=== PATIENT | male | born 1940 | race Caucasian/White ===

== ENCOUNTER → 2017-03-05 | Day surgery (SDC) | payer MEDICARE ==
[2017-02-13 13:51] LABS: BASOPHILS # (AUTO) 0.1 (0.0-0.1); BASOPHILS % 0.9 % (0.0-1.0); EOSINOPHILS # (AUTO) 0.2 (0.0-0.4); EOSINOPHILS % 2.6 % (0.0-6.0); HEMATOCRIT 44.8 % (38.2-49.6); HEMOGLOBIN 15.2 g/dL (14.0-18.0); LYMPHOCYTES # (AUTO) 1.5 (1.0-3.2); LYMPHOCYTES % 21.3 % (18.0-39.1); MEAN CORPUSCULAR HEMOGLOBIN 31.3 pg (28-32); MEAN CORPUSCULAR HGB CONC 33.9 g/dL (31-35); MEAN CORPUSCULAR VOLUME 92.2 fL (81-99); MONOCYTES # (AUTO) 0.7 (0.2-0.8); MONOCYTES % 10.3 % (4.4-11.3); NEUTROPHILS # (AUTO) 4.4 (2.1-6.9); NEUTROPHILS % 64.8 % (38.7-80.0); PLATELET COUNT 175 x10e3/uL (140-360); RED BLOOD COUNT 4.86 x10e6/uL (4.3-5.7)
[~2017-03-05] MED LIST: BACTRIM DS TAB1 EACH PO; CIPRO250 MG PO; FENTANYL CITRATE/PF 100MCG/2 ML INJ ONE; FLAGYL500 MG PO; MIDAZOLAM HCL 2 MG/2 ML VIAL ONE; NORCO 5-325 TA1 EACH PO; PHENYLEPHRINE HCL 1% 10 MG/ML VIAL ONE; PROPOFOL IV EMULSION 10 MG/ML 50 ML VIAL ONE; TEMAZEPAM15 MG PO; TIZANIDINE HCL4 M1 PO; VALIUM5 MG PO; Z.0.TAMSULOSIN HCL0. PO; [UNRECOGNIZED DRUG - REMARK] PO
== END | disposition home or self-care (01) ==
LOC: OR 08:52
PROVIDERS: ATTEND Internal Medicine Gastroenterology
DX: Z12.11 Encounter for screening for malignant neoplasm of colon (principal); D12.0 Benign neoplasm of cecum; D12.2 Benign neoplasm of ascending colon; D12.3 Benign neoplasm of transverse colon; D12.4 Benign neoplasm of descending colon; D12.8 Benign neoplasm of rectum; K29.50 Unspecified chronic gastritis without bleeding; K31.89 Other diseases of stomach and duodenum; K44.9 Diaphragmatic hernia without obstruction or gangrene; R13.10 Dysphagia, unspecified; K57.30 Diverticulosis of large intestine without perforation or abscess without bleeding; K64.8 Other hemorrhoids; M54.9 Dorsalgia, unspecified; I45.10 Unspecified right bundle-branch block; N40.0 Benign prostatic hyperplasia without lower urinary tract symptoms; E03.9 Hypothyroidism, unspecified; G47.30 Sleep apnea, unspecified; F17.299 Nicotine dependence, other tobacco product, with unspecified nicotine-induced disorders; Z01.812 Encounter for preprocedural laboratory examination
CPT/HCPCS: 36415; 43239; 45384; 45385; 85025; 87106; 87205; 88112; 88305; 88312; 93005; J2250; J2370; 43235

== ENCOUNTER 2019-04-04 08:35 | Observation (INO) | payer MEDICARE ==
[~2019-04-04] VITALS: Ht 172.7 cm; Wt 76.2 kg
[~2019-04-04 08:35] MED LIST changes: -FENTANYL CITRATE/PF 100MCG/2 ML INJ ONE; -MIDAZOLAM HCL 2 MG/2 ML VIAL ONE; -PHENYLEPHRINE HCL 1% 10 MG/ML VIAL ONE; -PROPOFOL IV EMULSION 10 MG/ML 50 ML VIAL ONE
--- OUTSIDE RECORDS SUMMARY | 2019-04-04 08:39 | XMS REPORT ---
Author Author [facility] Address Unknown Phone Unavailable Care Team Providers Care Civil Drafter Name Role Phone Unavailable Unavailable Payers Payer Name Policy Type Policy Number Effective Date Expiration Date Problems This patient has no known problems. Allergies, Adverse Reactions, Alerts Allergy Name Allergy Type Status Severity Reaction(s) Onset Date Inactive Date Treating Clinician Comments aspirin DA Active MO 2014-12-31 00:00:00 penicillin G DA Active MO 2014-12-31 00:00:00 Medications This patient has no known medications. Results Test Description Test Time Test Comments Text Results Atomic Results Result Comments PROSTATE, TUR 2017-12-24 12:08:00 RUN DATE: 12/24/17 [facility] PAGE 1 RUN TIME: 1208 Specimen Inquiry RUN USER: INTERFACE PATIENT: ROLAND THOMAS LOC: SHAY #: [id number] AGE/SX: 76/M ROOM: [facility] RE12/23/17REG DR: Alex Madera MD : 38 BED: A DIS: 12/24/17 STATUS: DIS Penny TLOC: SPEC #: [id number] RECD: 12/23/17 STATUS: MARIA DEL ROSARIO REQ #: [id number] MINISTERIO: 12/23/[address] [facility] [address]: Alex Madera MD ENTERED: 12/23/17 SP TYPE: PROSTATE, OTHR DR: Alexi Dolan MD ORDERED: GROSS COPIES TO: Alexi Dolan MD [address], [address] [place] [address] Alex Madera MD [address] [place] [address] MARKERS: INTRADEPARTMENTAL CONSULT PROCEDURES: GROSS (12/24/17-103) TISSUES: PROSTATE, NOS - CHIPS CLINICAL HISTORY COLLECTION DATE: 12/23/2017 BENIGN PROSTATIC HYPERPLASIA COMMENT Intradepartmental consultation: JAMEY FINAL DIAGNOSIS Prostate, transurethral resection: NODULAR HYPERPLASIA AND GRANT OF 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 It consists of multiple smith-brown to pink irregular fragments of tissue measuring 8.0 X 7.0 X 2.0 cm in aggregate. The tissue weighs 25.1 grams in total. The tissue is entirely submitted in cassette (1A-1R). GROSS PERFORMED AT [facility] [address] [place] [address] (p)[phone] MICROSCOPIC MICROSCOPIC PERFORMED AT [facility] All of the stains, including any controls performed, stain appropriately. [facility] [address] [place] [address] (p)[phone] PERFORM[address] SITE Diagnosis performed at: [facility] [address] [place] [address] Signed SIGNATURE ON FILE Jeromy Villanueva 12/24/17 1208 END OF REPORT
--- OUTSIDE RECORDS SUMMARY | 2019-04-04 08:39 | XMS REPORT | Summary of Care ---
Author Author MARCELA PARKER M.D. Unknown Address [facility] Phone Unavailable Care Team Providers Care Repatcher Name Role Phone CHRIS MCCAIN MD Unavailable Unavailable Unavailable Unavailable Functional Status Name Dates Details Functional status health issues are not documented Status: Name Dates Details Cognitive status health issues are not documented Status: Problems Name Dates Details Dysphagia (787.20, R13.10) Status: Active Esophageal diverticulum (750.4, Q39.6) Status: Active Sore throat (462, J02.9) Status: Active Medications Name Dates Details [place] Thyroid TABS R.N. Active Allergies and Adverse Reactions Name Dates Details Aspirin TABS (Allergy) Status: Active Penicillins (Allergy) Status: Active Past Medical History Name Dates Details History of thyroid disease (V12.29, Z86.39) Status: Resolved Procedures Procedure Dates Details History of Hernia Repair Completed History of Prostate Surgery Completed History of Rotator Cuff Repair Completed Immunization Name Dates Details Immunizations not documented Family History Name Dates Details No significant family history (V49.89, Z78.9) Comments: Family History Status: Active Social History Name Dates Details - Status: Name Dates Details Never smoker Vital Signs Date Test Result Details 20-Guj-[id number]:28 BP Systolic 156 mm[Hg] Status: BP Diastolic 91 mm[Hg] Status: Height 67 in Status: Weight 153.5 lb Status: Body Mass Index Calculated 24.04 kg/m2 Status: Body Surface Area Calculated 1.81 m2 Status: Heart Rate 61 /min Status: 81-Mji-989450:27 BP Systolic 143 mm[Hg] Status: BP Diastolic 86 mm[Hg] Status: Height 67 in Status: Weight 156.1875 lb Status: Body Mass Index Calculated 24.46 kg/m2 Status: Body Surface Area Calculated 1.82 m2 Status: Heart Rate 56 /min Status: Results Date Description Value Details :30 GI Esophagus barium swallow 28000 Esophagus barium swallow SEE NOTES Comments: Exam: Barium swallow esophagramReason for Exam: - R13.10 Dysphagia, unspecifiedComparison Exam: Thyroid ultrasound 08/07/2017Discussion:Recruitment Advertising Manager view of the cervical spine and soft tissu es of the neck are unremarkable.Patient ingested air crystals and barium without incident. Upon deglutition,there was no evidence seen for aspiration or penetration. The valleculae andpiriform sinuses are unremarkable.However, there is a moderate sized posterior esophageal diverticulum abuttingthe anterior aspect of the C6 vertebral body. The esophagus is unremarkable inappearance, without evidence for mucosal abnormalities, abnormal fillingdefects, or external mass effect. No evidence seen for tertiary contractionwaves or hiatal hernia. During the examination, there was no evidence seen forgastroesophageal refl ux.The stomach and visualized portions of the duodenum are unremarkable.Fluoro time 1 minute, 45 seconds.Total exam ZFR=5629 mGy-cm.Impression:1. Moderate sized posterior esophageal diverticulum abutting the anterioraspect of the C6 vertebral body.--Read by: Madhu Mcdonald MDDictated Date/time: 01/23/18 09:34Electronically Signed by: Madhu Mcdonald MD 01/23/1809:42FINAL REPORT Plan of Care Name Dates Details Planned Observations Planned Goals not documented Instructions Name Dates Details Instructions not documented Encounters Appointment; MARCELA PARKER M.D. Encounter Diagnosis: Problem not documented On: 10-Jan-2018 14:45 Appointment; MARCELA PARKER M.D. Encounter Diagnosis: Problem not documented On: 27-Jan-2018 13:15
[2019-04-04] MEDS ORDERED: SODIUM CHLORIDE 0.9% 1000ML 1,000 ML IV STA (08:51)
[2019-04-04] MEDS ORDERED: ASPIRIN 81 MG CHEW TAB PO ONE (09:00)
[2019-04-04] MEDS ORDERED: NITROGLYCERIN 2% OINT 1 GM PKT TOP ONE (09:00)
[2019-04-04] MEDS ORDERED: ONDANSETRON HCL INJ 2MG/ML 2ML 2 MG/ML VIAL IV NR (09:15)
[2019-04-04] MEDS ORDERED: MORPHINE SULFATE 2 MG/ML SYR 1ML IV NR (09:15)
[2019-04-04] MEDS ORDERED: PANTOPRAZOLE 40 MG 10ML VIAL IV NR (09:15)
[2019-04-04 09:29] LABS: BASOPHILS # (AUTO) 0.1 (0.0-0.1); BASOPHILS % 0.7 % (0.0-1.0); EOSINOPHILS # (AUTO) 0.2 (0.0-0.4); EOSINOPHILS % 1.8 % (0.0-6.0); HEMATOCRIT 47.2 % (38.2-49.6); HEMOGLOBIN 15.4 g/dL (14.0-18.0); LYMPHOCYTES # (AUTO) 1.5 (1.0-3.2); LYMPHOCYTES % 17.6 % (18.0-39.1); MEAN CORPUSCULAR HEMOGLOBIN 31.5 pg (28-32); MEAN CORPUSCULAR HGB CONC 32.6 g/dL (31-35); MEAN CORPUSCULAR VOLUME 96.5 fL (81-99); MONOCYTES # (AUTO) 0.8 (0.2-0.8); MONOCYTES % 9.6 % (4.4-11.3); NEUTROPHILS # (AUTO) 6.1 (2.1-6.9); NEUTROPHILS % 70.1 % (38.7-80.0); PLATELET COUNT 203 x10e3/uL (140-360); RED BLOOD COUNT 4.89 x10e6/uL (4.3-5.7)
[2019-04-04 09:37] LABS: INR 0.92; PROTHROMBIN TIME 12.9 seconds (11.9-14.5)
[2019-04-04 09:38] LABS: PARTIAL THROMBOPLASTIN TIME 31.5 seconds (23.8-35.5)
[2019-04-04 09:47] LABS: ALBUMIN 4.1 g/dL (3.5-5.0); ALBUMIN/GLOBULIN RATIO 1.2 (0.8-2.0); ANION GAP 12.6 mmol/L (8-16); CALCIUM 9.8 mg/dL (8.4-10.2); CREATININE, SERUM 1.72 mg/dL (0.72-1.25); POTASSIUM 3.6 mmol/L (3.5-5.1)
[2019-04-04 09:53] LABS: CREATINE KINASE MB 1.5 ng/mL (0-5.0)
[2019-04-04] MEDS ORDERED: HYDRALAZINE HCL 20 MG/ML VIAL IV STA (09:58)
[2019-04-04] MEDS ORDERED: MORPHINE SULFATE INJ 4 MG/ML INJ 1ML IV NR (10:00)
--- NOTE | 2019-04-04 10:12 | Diagnostic Imaging Report ---
EXAMINATION: CHEST SINGLE (PORTABLE) INDICATION: ^CP ^[id number] ^0909 COMPARISON: None FINDINGS: AP view TUBES and LINES: None. LUNGS: Lungs are well inflated. Linear atelectasis in lung bases. PLEURA: No pleural effusion or pneumothorax. HEART AND MEDIASTINUM: The cardiomediastinal silhouette is unremarkable. BONES AND SOFT TISSUES: No acute osseous lesion. Soft tissues are unremarkable. UPPER ABDOMEN: No free air under the diaphragm. IMPRESSION: Linear atelectasis in lung bases. Signed by: Maxime Torres MD on 04/04/2019 10:10 AM
[2019-04-04] MEDS ORDERED: MORPHINE SULFATE 2 MG/ML SYR 1ML IV PRN (12:15)
[2019-04-04] MEDS ORDERED: ONDANSETRON HCL INJ 2MG/ML 2ML 2 MG/ML VIAL IV PRN (12:15)
[2019-04-04] MEDS ORDERED: HYDRALAZINE HCL 20 MG/ML VIAL IV PRN (12:15)
--- NOTE | 2019-04-04 12:28 | Diagnostic Imaging Report ---
EXAM: CT Abdomen and Pelvis WITHOUT contrast INDICATION: ^MAIE ABD PAIN, GFR 38 ^[id number] ^1110 ^Y COMPARISON: None. TECHNIQUE: Abdomen and pelvis were scanned utilizing a multidetector helical scanner from the lung base to the pubic symphysis without administration of IV contrast. Absence of intravenous contrast decreases sensitivity for detection of focal lesions and vascular pathology. Coronal and sagittal reformations were obtained. Routine protocol was performed. IV CONTRAST: None ORAL CONTRAST: Water COMPLICATIONS: None RADIATION DOSE: Total DLP: 341.47 mGy-cm Estimated effective dose: (DLP x 0.015 x size factor) mSv CTDIvol has been reviewed. It is below the limits set by the Radiation Protocol Committee (RPC). FINDINGS: LINES and TUBES: None. LOWER THORAX: Unremarkable HEPATOBILIARY: There is a calcified granuloma in the right hepatic lobe. No biliary ductal dilation. GALLBLADDER: No radio-opaque stones or sludge. No wall thickening. SPLEEN: No splenomegaly. Multiple calcified granulomas are seen. PANCREAS: No focal masses or ductal dilatation. ADRENALS: No adrenal nodules KIDNEYS/URETERS: No hydronephrosis. There is 1.0 cm cyst in the interpolar region of the right kidney. There is a left parapelvic cyst. No stones. GI TRACT: No abnormal distention, wall thickening, or evidence of bowel obstruction. There are diverticula within the colon without evidence of diverticulitis. Appendix is normal. PELVIC ORGANS/BLADDER: Unremarkable. LYMPH NODES: No lymphadenopathy. VESSELS: There is severe atherosclerotic disease in the aorta and major arterial branches. PERITONEUM / RETROPERITONEUM: No free air or fluid. BONES: There are degenerative changes in the lumbar spine. SOFT TISSUES: Unremarkable. IMPRESSION: No CT finding to correlate with patient's abdominal pain. Colonic diverticulosis with no evidence of diverticulitis. Signed by: Maxime Torres MD on 04/04/2019 12:26 PM
--- NOTE | 2019-04-04 12:33 | Diagnostic Imaging Report ---
EXAM: Complete Abdominal Ultrasound INDICATION: ^AMIE ABD PAIN COMPARISON: None. TECHNIQUE: Transverse and longitudinal images of the upper abdomen were obtained. FINDINGS: Liver: Size: 14.1 cm in the right midclavicular line, normal Appearance: Normal echogenicity, smooth contour Mass: No focal masses Spleen: Size: 9.9 cm in length, normal Echogenicity: Normal Mass: No focal masses Gallbladder: Stones/Sludge: There is gallbladder sludge. Wall: 0.2 cm Appearance: No pericholecystic fluid or hydrops. Sonographic Young's Sign: Negative Bile Ducts: Intrahepatic Ducts: No dilatation Extrahepatic Ducts: Common bile duct measures 0.4 cm, no dilatation Pancreas: Visualized portions of the pancreatic head, neck and proximal body are normal. Right Kidney: Size: 10.8 cm Echogenicity: Normal Parenchymal thickness: Normal Collecting System: No hydronephrosis Stone: None Cyst/Mass: 0.8 cm simple cyst. Left Kidney: Size: 9.6 cm Echogenicity: Normal Parenchymal thickness: Normal Collecting System: No hydronephrosis Stone: None Cyst/Mass: 3.9 cm simple cyst. Vessels: Aorta: Visualized portions are normal Inferior Vena Cava: Visualized portions are normal Main Portal Vein: normal size with hepatopetal flow. Free Fluid: No ascites or pleural effusion IMPRESSION: Gallbladder sludge with no acute finding. Signed by: Maxime Torres MD on 04/04/2019 12:31 PM
--- NOTE | 2019-04-04 13:03 | NUR ---
RCD PT FROM ER BY BED PT IS ALERT AND ORIENTED PT RESTING ON BED VITALS CHECKED ADMISSION ASSESSMENT AND HISTORY DONE IV PATENT BY SALINE FLUSH INSTRUCTED PT REGARDING HOSPITAL POLICY AND ROUTINE BED LOW AND LOCKED CALL LIGHT IN REACH
[2019-04-04 13:38] VITALS: BP 122/91
[2019-04-04 14:22] VITALS: BP 122/91
[2019-04-04 14:33] VITALS: BP 122/91
[2019-04-04] MEDS: PANTOPRAZOLE 40 MG 10ML VIAL IV SCH (16:41)
[2019-04-04] MEDS: NITROGLYCERIN 2% OINT 1 GM PKT TOP SCH (16:41)
[2019-04-04 17:23] VITALS: BP 145/73
--- NOTE | 2019-04-04 18:41 | NUR ---
PT RESTING ON BED BED SIDE REPORT GIVEN TO ONCOMING NURSE
[2019-04-04 18:46] LABS: CREATINE KINASE MB 1.3 ng/mL (0-5.0)
[2019-04-04 20:00] VITALS: BP 137/75
[2019-04-04 21:00] VITALS: BP 137/75
[2019-04-04] MEDS ORDERED: TEMAZEPAM 15 MG CAP PO SCH (21:00)
[2019-04-05] VITALS: BP 114/65
[2019-04-05] MEDS: NITROGLYCERIN 2% OINT 1 GM PKT TOP SCH ×3 (00:02→12:00)
[2019-04-05] MEDS ORDERED: LEVOTHYROXINE50 MCG PO (03:51)
[2019-04-05] MEDS ORDERED: DEXILANT60 MG PO (03:51)
[2019-04-05 04:00] VITALS: BP 118/59
[2019-04-05 05:57] LABS: BASOPHILS % 0.5 % (0.0-1.0); EOSINOPHILS # (AUTO) 0.1 (0.0-0.4); EOSINOPHILS % 2.2 % (0.0-6.0); HEMATOCRIT 39.7 % (38.2-49.6); HEMOGLOBIN 13.1 g/dL (14.0-18.0); LYMPHOCYTES # (AUTO) 1.3 (1.0-3.2); LYMPHOCYTES % 21.4 % (18.0-39.1); MEAN CORPUSCULAR HEMOGLOBIN 31.7 pg (28-32); MEAN CORPUSCULAR VOLUME 96.1 fL (81-99); MONOCYTES # (AUTO) 0.8 (0.2-0.8); MONOCYTES % 13.7 % (4.4-11.3); NEUTROPHILS # (AUTO) 3.7 (2.1-6.9); NEUTROPHILS % 61.9 % (38.7-80.0); PLATELET COUNT 171 x10e3/uL (140-360); RED BLOOD COUNT 4.13 x10e6/uL (4.3-5.7); RED CELL DISTRIBUTION WIDTH 12.4 % (11.7-14.4)
[2019-04-05 06:22] LABS: CREATINE KINASE MB 1.3 ng/mL (0-5.0)
[2019-04-05 06:48] LABS: ALBUMIN 3.1 g/dL (3.5-5.0); ALBUMIN/GLOBULIN RATIO 1.1 (0.8-2.0); ANION GAP 13.8 mmol/L (8-16); CALCIUM 8.8 mg/dL (8.4-10.2); CHOL/HDL RATIO 2.6 (3.9-4.7); CREATININE, SERUM 1.65 mg/dL (0.72-1.25); POTASSIUM 3.8 mmol/L (3.5-5.1)
--- NOTE | 2019-04-05 07:00 | NUR ---
RCD PT AT BED PT IS ALERT AND ORIENTED PT RESTING ON BED NO SIGNS OF ANY DISTRESS NOTED IV PATENT BY SALINE FLUSH BED LOW AND LOCKED CALL LIGHT IN REACH
[2019-04-05 08:00] VITALS: BP 118/59
[2019-04-05 08:48] VITALS: BP 133/76
[2019-04-05] MEDS ORDERED: ASPIRIN 81 MG ENTERIC COATED PO SCH (09:00)
[2019-04-05] MEDS: PANTOPRAZOLE 40 MG 10ML VIAL IV SCH (09:00)
--- NOTE | 2019-04-05 10:08 | NUR ---
PT REQUESTED TO GO HOME PAGED DR RODRIGUEZ AND LEFT THE MESSAGE
[2019-04-05 11:55] VITALS: BP 154/92
[2019-04-05] MEDS ORDERED: ASPIRIN EC81 MG PO (14:25)
--- NOTE | 2019-04-05 15:14 | NUR ---
PT WENT HOME IN SAFE CONDITION WITH HIS
--- NOTE | 2019-04-06 02:03 | Discharge Summary ---
CONSULTANTS: There were no consults for this admission. CHIEF COMPLAINT: Chest pain. HISTORY OF PRESENT ILLNESS: Mr. Tripp is an 78-year-old male, who began having substernal chest pain, which began at about 07:00 a.m. on 04/04/2019. It was 7/10 on a 0 to 10 pain scale and nonradiating. There were no associated sinus or symptoms such as shortness of breath or nausea and vomiting. The chest pain stopped hurting around 05:00 p.m. on 04/04. The patient also had generalized abdominal pain. That began around 10:30 a.m. on 04/04. He takes medications at home for gastroesophageal reflux disease. PAST MEDICAL HISTORY: Includes hypothyroidism, gastroesophageal reflux disease, diverticulosis. He takes beta-blockers for tremors. PAST SURGICAL HISTORY: Hemorrhoidectomy, prostatectomy, thyroid surgery, right rotator cuff repair, double hernia. FAMILY HISTORY: Father was diagnosed with colon cancer at age 77 and at age 80. Mother at age 42 with multiple health problems. SOCIAL HISTORY: He smoked 1 pack per day for 55 years and quit in 2018 and easily drinks one beer a day and has 1 shot of whiskey per day. Denies any illicit drug use. ALLERGIES: INCLUDE PENICILLIN AND ASPIRIN. ADMITTING DIAGNOSES: Include: 1. Precordial chest pain, atypical. 2. Acute epigastric abdominal pain. 3. Transaminitis. 4. Huygm-xg-aytnirm diverticulosis without diverticulitis. 5. Moderate chronic renal insufficiency, possible chronic kidney disease. 6. Hypertensive crisis. 7. Bibasilar atelectasis. 8. Chronic tremors. 9. Hypothyroidism. 10. Benign prostatic hypertrophy. 11. Gastroesophageal reflux disease. DISCHARGE DIAGNOSES: Include: 1. Precordial chest pain, atypical. 2. Acute epigastric abdominal pain. 3. Transaminitis. 4. Fiiel-sd-rdlzaep diverticulosis without diverticulitis. 5. Moderate chronic renal insufficiency, possible chronic kidney disease. 6. Hypertensive crisis. 7. Bibasilar atelectasis. 8. Chronic tremors. 9. Hypothyroidism. 10. Benign prostatic hypertrophy. 11. Gastroesophageal reflux disease. HOSPITAL COURSE: The patient currently denies any chest pain or abdominal pain. He will continue his enteric-coated aspirin. On admission, WBC is 8.76, hemoglobin 15.4, hematocrit 47.2, and platelets 203. PT 12.9, INR 0.92, PTT 31.5. Lipase 11, amylase 103. B-type natriuretic peptide 19.5. Creatine kinase was 79, then 61, then 45. CK-MB was 1.5, then 1.3, then 1.3. Troponin I was 0.001, then 0.018, then 0.038. Discharge chemistry is as follows; sodium 141, potassium 3.8, chloride 108, CO2 of 23, BUN 21, creatinine 1.65, estimated GFR 40, glucose 92, calcium 8.8, total bilirubin 1.2. AST 101, formally 17; ALT 107, formally 15; alkaline phosphatase 85. Abdominal ultrasound showed gallbladder sludge without acute findings. ECG showed sinus bradycardia with heart rate of 56 and incomplete right bundle-branch block. CT of the abdomen showed colonic diverticulosis without diverticulitis. Chest x-ray showed linear atelectasis in the lung bases. The patient states he plans to get a new PCP as his PCP recently retired. His name picked out of a PCP that is about 4 blocks from his home. I asked the patient to keep a diary of his blood pressures 3 times a day and bring it with him to each physician's appointment. The patient to continue on cardiac diet. Activity level as tolerated. Dictated by Moe Villagomez NP MD SHIMA PainterP/MODL /[id number]
== END 2019-04-05 15:14 | disposition home or self-care (01) ==
LOC: ER 08:35 → ERHOLD 12:10 → MED/SURG2 13:04
PROVIDERS: ADMIT Internal Medicine; ATTEND Internal Medicine
DX: R07.89 Other chest pain (principal); R74.0 Nonspecific elevation of levels of transaminase and lactic acid dehydrogenase [LDH]; I16.9 Hypertensive crisis, unspecified; K21.9 Gastro-esophageal reflux disease without esophagitis; J98.11 Atelectasis; R25.1 Tremor, unspecified; E03.9 Hypothyroidism, unspecified; K57.90 Diverticulosis of intestine, part unspecified, without perforation or abscess without bleeding
CPT/HCPCS: 36415 ×2; 71045; 74176; 76700; 80053 ×2; 80061; 82150; 82550 ×2; 82553 ×2; 83690; 83735; 83880; 84484 ×2; 85025 ×2; 85610; 85730; 93005; 99284; C9113 ×2; G0378 ×2; J0360; J2270 ×2; J2405; J7030

== ENCOUNTER 2019-04-25 04:28 | Emergency (ER) | payer MEDICARE ==
[~2019-04-25] VITALS: Ht 170.2 cm; Wt 71.2 kg
[~2019-04-25 04:28] MED LIST changes: +ASPIRIN EC81 MG PO; +DEXILANT60 MG PO; +LEVOTHYROXINE50 MCG PO
[2019-04-25] MEDS: SODIUM CHLORIDE 0.9% 1000ML 1,000 ML IV ONE (04:50)
[2019-04-25] MEDS: MORPHINE SULFATE 2 MG/ML SYR 1ML IV STA ×2 (04:50→05:41)
[2019-04-25] MEDS: ONDANSETRON HCL INJ 2MG/ML 2ML 2 MG/ML VIAL IV STA (04:50)
[2019-04-25 04:55] LABS: BASOPHILS % 0.4 % (0.0-1.0); EOSINOPHILS # (AUTO) 0.1 (0.0-0.4); EOSINOPHILS % 1.9 % (0.0-6.0); HEMATOCRIT 45.6 % (38.2-49.6); LYMPHOCYTES # (AUTO) 0.8 (1.0-3.2); LYMPHOCYTES % 11.1 % (18.0-39.1); MEAN CORPUSCULAR HEMOGLOBIN 31.6 pg (28-32); MEAN CORPUSCULAR HGB CONC 32.9 g/dL (31-35); MEAN CORPUSCULAR VOLUME 96.2 fL (81-99); MONOCYTES # (AUTO) 0.7 (0.2-0.8); MONOCYTES % 9.2 % (4.4-11.3); NEUTROPHILS # (AUTO) 5.8 (2.1-6.9); NEUTROPHILS % 77.1 % (38.7-80.0); PLATELET COUNT 167 x10e3/uL (140-360); RED BLOOD COUNT 4.74 x10e6/uL (4.3-5.7); RED CELL DISTRIBUTION WIDTH 11.9 % (11.7-14.4)
[2019-04-25 05:18] LABS: ALBUMIN 4.1 g/dL (3.5-5.0); ALBUMIN/GLOBULIN RATIO 1.2 (0.8-2.0); ANION GAP 11.9 mmol/L (8-16); CALCIUM 9.8 mg/dL (8.4-10.2); CREATININE, SERUM 2.04 mg/dL (0.72-1.25); POTASSIUM 3.9 mmol/L (3.5-5.1)
[2019-04-25 05:19] LABS: AMYLASE 103 U/L (25-125); LIPASE 14 U/L (8-78)
[2019-04-25] MEDS ORDERED: DIATRIZOATE MEGL/DIATRIZOA SOD 30 ML BTL PO ONE (05:25)
[2019-04-25 05:26] LABS: CREATINE KINASE MB 1.3 ng/mL (0-5.0)
[2019-04-25 05:44] LABS: CLARITY,URINE CLEAR (CLEAR); COLOR,URINE YELLOW (YELLOW)
[2019-04-25 05:45] LABS: BILIRUBIN,URINE NEGATIVE (NEGATIVE); KETONES,URINE 1+ (NEGATIVE); LEUKOCYTE ESTERASE ,URINE NEGATIVE (NEGATIVE); NITRITE,URINE NEGATIVE (NEGATIVE); PROTEIN,URINE DIPSTICK NEGATIVE (NEGATIVE); URINE UROBILINOGEN 0.2 mg/dL (0.2 - 1)
[2019-04-25 05:52] LABS: EPITHELIAL CELLS,URINE FEW /LPF; RBC,URINE 0-5 /HPF (0-5); WBC,URINE (MAN) 0-5 /HPF (0-5)
--- NOTE | 2019-04-25 06:23 | NUR ---
MD aware of vital signs.
--- NOTE | 2019-04-25 07:00 | NUR ---
Report to KRISSY Coleman
--- NOTE | 2019-04-25 07:34 | Diagnostic Imaging Report ---
Examination: Single AP view of the chest. COMPARISON: CT abdomen and pelvis 04/25/2019 INDICATION: Abdominal pain, nausea and vomiting IMPRESSION: 1. Lines and Tubes: None 2. Lungs are well-inflated. Patchy bibasilar atelectatic changes. No consolidation or pulmonary edema. 3. Cardiomediastinal silhouette is normal. Pulmonary vasculature is normal. Prominence of the aortic arch. 4. No acute bony abnormalities. Signed by: Dr. Manfred Rodriguez M.D. on 04/25/2019 7:31 AM
--- NOTE | 2019-04-25 07:43 | Diagnostic Imaging Report ---
EXAMINATION: CT of the abdomen and pelvis without contrast. TECHNIQUE: Spiral CT images of the abdomen and pelvis were performed from the lung bases to the lesser trochanters. No intravenous contrast was given due to decreased GFR. Oral dilute Gastrografin was given. Coronal and sagittal reformatted images were obtained. COMPARISON: CT abdomen and pelvis without contrast 03/15/2019 CLINICAL HISTORY:Mid abdominal pain, nausea and vomiting DISCUSSION: ABSENCE OF INTRAVENOUS CONTRAST DECREASES SENSITIVITY FOR DETECTION OF FOCAL LESIONS AND VASCULAR PATHOLOGY. ABDOMEN/PELVIS: LOWER THORAX: Atelectatic changes in the right middle lobe. Calcified granuloma in the right lower lobe (series 2, image 8). No consolidation. Atherosclerotic calcification of the aortic valves and coronary arteries. HEPATOBILIARY: Calcified hepatic granulomas. No other focal hepatic lesions. No intra or extrahepatic biliary ductal dilation. GALLBLADDER: No radio-opaque stones or sludge. No wall thickening. SPLEEN: No splenomegaly. Calcified granulomata. PANCREAS: No focal masses or ductal dilatation. ADRENALS: No adrenal nodules. KIDNEYS/URETERS: No hydronephrosis, stones, or contour abnormalities. Stable 1.0 cm fluid density simple cysts in the right interpolar region (series 2, image 38). Stable 4.1 x 3.8 x 3.8 cm fluid density structure in the renal sinus at the superior pole the left kidney, which may represent a peripelvic cyst or cortical cyst projecting into the sinus. Stable partially exophytic 1.1 cm fluid density simple cyst in the left inferior pole (sagittal image 94). PELVIC ORGANS/BLADDER: Bladder is moderately distended. No wall thickening or focal lesions. Multiple pelvic phleboliths. PERITONEUM/RETROPERITONEUM: No free air or fluid. LYMPH NODES: No intra-abdominal,retroperitoneal, pelvic or inguinal lymphadenopathy. VESSELS: Moderate atherosclerotic calcification of the abdominal aorta and iliac vessels. Mild ectasia of the infrarenal abdominal aorta at the level of the RAMON, which measures approximately 2.2 x 2.5 cm (series 2, image 46). GI TRACT: No bowel dilation or evidence of obstruction. Descending and sigmoid colon diverticulosis, without diverticulitis. BONES AND SOFT TISSUES: No aggressive lytic lesions. Multilevel degenerative disks in the lower thoracic and lumbosacral spine. IMPRESSION: 1. No acute abdominopelvic abnormalities. 2. Descending and sigmoid colon diverticulosis, without diverticulitis. Signed by: Dr. Manfred Rodriguez M.D. on 04/25/2019 7:39 AM
[2019-04-25] MEDS: SODIUM CHLORIDE 0.9% 1000ML 1,000 ML IV STA (08:39)
[2019-04-25] MEDS: METOPROLOL TARTRATE 25 MG TAB PO ONE (08:39)
[2019-04-25 10:21] VITALS: BP 141/88
[2019-04-29] MEDS ORDERED: LEVOFLOXACIN500 MG PO (10:10)
[2019-04-29] MEDS ORDERED: ONDANSETRON ODT8 MG PO (10:10)
[2019-04-29] MEDS ORDERED: METRONIDAZOLE500 MG PO (10:10)
[2019-04-29] MEDS ORDERED: NORVASC10 MG PO (10:10)
[2019-04-29] MEDS ORDERED: SYNTHROID75 MCG PO (10:10)
[2019-04-29] MEDS ORDERED: TYLENOL WITH C1 EACH PO (10:10)
[2019-04-29] MEDS ORDERED: TAMIFLU75 MG PO (10:10)
== END 2019-04-25 10:39 | disposition home or self-care (01) ==
LOC: ER 04:28
DX: R10.33 Periumbilical pain (principal); R10.84 Generalized abdominal pain; R11.2 Nausea with vomiting, unspecified; K57.30 Diverticulosis of large intestine without perforation or abscess without bleeding
CPT/HCPCS: 36415; 71045; 74176; 80053; 81001; 82150; 82550; 82553; 83690; 84484; 85025; 93005; 99285; J2270; J2405; J7030